=== PATIENT | female | born 1935 | race Caucasian/White ===

== ENCOUNTER 2016-09-07 11:03 | Inpatient (IN) | payer MEDICARE ==
[~2016-09-07] VITALS: Ht 160 cm; Wt 84.0 kg
--- NOTE | ~2016-09-07 | CR72 ---
[facility] A Service of [facility] & [facility] / [facility] RADIOLOGY TEXT RESULTS PATIENT: IVETH SNOWDEN LOCATION: [facility] 331- : 35 UNIT #: [id number] AGE: [address]: Tim Fontana MD SEX: F ORDER DR: [id number] [facility] [address] [place], [place] [address] [id number] MR#: [id number] Acc #: [id number] NAME: IVETH SNOWDEN. : 1935 SEX: F STUDY DATE/TIME: 09/07/2016 14:32 UNIT: [address] ROOM: [facility] STUDY DESCRIPTION: CR Chest Single View Portable Attending Physician: Tim Fontana M.D. Ordering Physician: Alfredo Baker M.D. Primary Care Physician: Soham Dietz M.D. MEDICAL IMAGING REPORT This report is preliminary unless electronic signature is present EXAM Portable chest HISTORY Former smoker. Complains of shortness of air, irregular heartbeat. COMPARISON 10/15/2015. FINDINGS AP portable view of the chest demonstrates coarse parenchymal markings suggesting underlying emphysema and fibrosis. There is cardiomegaly with prominence of the pulmonary vascular and interstitium. Findings could represent superimposed CHF. No dense consolidation or airspace disease. No effusions. Mild aortic atherosclerotic changes. No pneumothorax. Dictated by... Jose Maria Lee M.D. THIS IS AN ELECTRONICALLY VERIFIED REPORT Jose Maria Lee M.D. at 09/08/2016 1:32 PM CLAYTON/chandrakant TD: 09/08/2016 01:56 JOB #: [id number] MEDICAL IMAGING REPORT Page 1 of 1 COPY
--- NOTE | ~2016-09-07 | HP ---
Unit #: [id number] #: [id number] Patient: IVETH SNOWDEN [id number] [place], [place] [address] [id number] I MR#: [id number] NAME: IVETH SNOWDEN. ROOM: 38844 Age: 80 Sex: F Admission Date: 09/07/2016 : 1935 Attending Physician: Tim Fontana M.D. Primary Care Physician: Soham Dietz M.D. HISTORY AND PHYSICAL HISTORY OF PRESENT ILLNESS An 80-year-old white female with a history of diastolic CHF, right mastectomy for breast cancer, chronic afib, COPD, obstructive sleep apnea syndrome, coronary artery disease, pulmonary hypertension, hypertension, hyperlipidemia, old CVA, chronic anemia, chronic kidney disease stage 3, recently at [facility] 09/01/16 in the emergency room with shortness of air, told she had fluid on her lungs, was given IV Lasix with good diuresis there and then discharged home. Apparently her nurse at home had registered an O2 sat down in the 70s at that time. In any case, the patient presents now to our emergency room with the same symptoms of shortness of air, dyspnea on exertion, PND, orthopnea. She has had no chest pain, cough, fever, change in bowel or bladder habits and was having some palpitations but she is in chronic afib although her EKG here looks somewhat unusual, looks more like a first-degree AV block that is quite long versus an ectopic atrial rhythm and she is admitted for further evaluation. In the ER she was hypoxic with an O2 sat of 89% on 4 L. She had a hemoglobin of 11.2. Digoxin level was normal. BNP was slightly elevated at 330 but again she has chronic renal failure. Her potassium was 5.7, sodium 133, BUN 65, creatinine 1.9, GFR 24. Urinalysis appears to be infected. Urine culture was sent. She has been started on antibiotics and admitted. ALLERGIES Codeine and Lipitor. HOME MEDICATIONS Her meds prior to admission are in question. The old list has her on Eliquis, Coumadin, Lovenox and aspirin which obviously is not the case and this list came from [facility]'s emergency room. Otherwise she is on: Tylenol 650 q.8 h. p.r.n. Advair 250/50 one puff b.i.d. Albuterol mini-nebs q.6 h. p.r.n. Ventolin two puffs p.r.n. She tells me she is on warfarin and not Eliquis or Lovenox. She is on: Aspirin 81 mg daily. Tegretol 200 mg b.i.d. Lanoxin 0.125 mg daily. Flonase nasal spray daily. Lasix 80 mg b.i.d. Neurontin 100 mg t.i.d. Humulin 70/30 30 units subcu t.i.d. with meals. Humulin R on a sliding scale. Isosorbide mononitrate 120 mg daily. Coumadin, apparently it was on hold for a brief period of time yesterday. She was supposed to take 7.5 today and then go back to 10 daily which makes no sense but on her chart it says 5 mg daily. Will hold it and write parameters. Zestril she has two doses 20 mg and 40 mg daily. Glucophage 500 mg b.i.d. which I discontinued on her last admission because of renal insufficiency and CHF. Lopressor 50 mg b.i.d. Nitrostat p.r.n. Nystatin suspension which she is not. Protonix 40 mg daily which she should not be on. Potassium which is held Unit #: [id number] #: [id number] Patient: IVETH SNOWDEN A 10 mEq b.i.d. because of hyperkalemia. Prednisolone acetate one drop left eye daily. Requip 1 mg p.o. b.i.d. 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 SOCIAL HISTORY She is , a nonsmoker, nondrinker, no street drug use. FAMILY HISTORY Family history is noncontributory. PHYSICAL EXAMINATION GENERAL: She is awake, alert, oriented x3, in no acute distress, sitting bolt upright, with 4 L of oxygen on. Son is at the bedside. VITAL SIGNS: Afebrile, pulse 64, respirations 18, blood pressure 145/65, O2 sat again was 89% on 4 L. HEENT: Unremarkable except for nasal cannula in place and pale mucous membranes. NECK: Neck was supple, without JVD, bruits, adenopathy or thyromegaly. CHEST: Diffusely decreased breath sounds with end-expiratory wheezes but no rales. HEART: Heart is irregularly irregular, without an S3 gallop or murmur appreciated. ABDOMEN: Large soft, nondistended, nontender, with positive bowel sounds and no hepatosplenomegaly. EXTREMITIES: Showed 2+ pitting edema of the bilateral lower extremities without any clubbing or cyanosis. DIAGNOSTIC STUDIES LABORATORY VALUES: CBC normal except for a hemoglobin of 11.2, with normal indices but an elevated RDW. Cardiac enzymes normal. Digoxin level 1.3. CMP is normal except for a sodium of 133, a potassium of 5.7, random blood sugar of 173, a BUN of 65, a creatinine of 1.9, a GFR of 24.5. BNP was 330. Urinalysis shows 2+ leukocytes, positive for nitrites, 10 to 25 WBCs, 2+ bacteria. IMAGING: Chest x-ray unable to read the physician's handwriting. CARDIOVASCULAR: EKG as mentioned above. Seems to be regular but has not flipped what appears to be a P wave midway between the QRS complexes which is fairly regular and does not seem to change. Most consistent with an ectopic atrial rhythm with a first-degree AV block and there is some right ventricular hypertrophy and a nonspecific ST abnormality. I have no old EKGs here for comparison. IMPRESSION 1. Hypoxic respiratory failure. 2. Diastolic congestive heart failure. 3. Chronic obstructive pulmonary disease. 4. Obstructive sleep apnea syndrome. 5. Type 2 diabetes mellitus. Unit #: [id number] #: [id number] Patient: IVETH SNOWDEN 6. Chronic atrial fibrillation. 7. Puqlc-lc-ftylnnq kidney disease. 8. Hyperkalemia. 9. Urinary tract infection. 10. Hyperlipidemia. 11. Old cerebrovascular accident. 12. History of gastrointestinal bleed. 13. History of right breast cancer, status post mastectomy. PLAN Kayexalate, IV Lasix, consult nephrology, consult cardiology, give Kayexalate, check ABGs, give IV Lasix, supplemental oxygen, Solu-Medrol, IV antibiotics, mini-nebs, Accu-Cheks, further evaluation pending results of the above. Dictated by Irene Hartmann/enrique TD: 09/07/2016 19:19 JOB #: [id number] HISTORY AND PHYSICAL Page 1 of 1 X Tim Fontana MD HISTORY AND PHYSICAL
--- NOTE | ~2016-09-07 | CO ---
Unit #: [id number] #: [id number] Patient: IVETH SNOWDEN [id number] [facility]. [place], [place] [address] [id number] I MR#: [id number] NAME: IVETH SNOWDEN ROOM: 331 Age: 80 Sex: F Admission Date: 09/07/2016 : 1935 Attending Physician: Tim Fontana M.D. Primary Care Physician: Soham Dietz M.D. Requesting Physician: Tim Fontana M.D. CONSULTATION REPORT REASON FOR CONSULTATION Patient known to my partner, followed by Dr. Arie Short for CKD stage 3. REASON FOR ADMISSION Shortness of breath, congestive heart failure. HISTORY OF PRESENTING ILLNESS This patient is a very pleasant 80-year-old white female with a history of metabolic syndrome with type 2 diabetes, hypertension, dyslipidemia, and known history of atherosclerotic coronary artery disease, status post stent placement in her coronaries. Patient has diastolic dysfunction and chronic atrial fibrillation. She was admitted with the complaint of increased shortness of breath. Patient had several pounds of fluid weight gain, +2 pitting edema, and positive JVD. She received some diuretics and feels a little bit better. Denied any fever, chills, cough, or sputum production, and denied any orthopnea. She does report that she does spend more time in a recliner. Patient had some hypoxemia on room air with 89% on four liters of oxygen, and she was admitted for management. Patient has a baseline creatinine of 1.6. Her creatinine was increased to 1.9 and BUN to 65. Her potassium was also elevated to 5.7. We were asked to see the patient for evaluation and management of acute on chronic renal failure and volume overload. PAST MEDICAL HISTORY As per History of Presenting Illness. She has a history of metabolic syndrome, type 2 diabetes, obesity, hypertension, hyperlipidemia, coronary artery disease, chronic atrial fibrillation, status post cholecystectomy and mastectomy for breast cancer, pulmonary hypertension, and obstructive sleep apnea. ALLERGIES Codeine and Lipitor. HOME MEDICATIONS 1. Eliquis. 2. Coumadin. 3. Aspirin. 4. Advair Diskus 250/50 b.i.d. 5. Ventolin. 6. Lasix 80 mg b.i.d. 7. Flonase nasal spray. 8. Neurontin 100 t.i.d. 9. Insulin 70/30 at 30 units t.i.d. Unit #: [id number] #: [id number] Patient: IVETH SNOWDEN 10. Lopressor 50 b.i.d. 11. Nitroglycerin sublingual p.r.n. PHYSICAL EXAMINATION GENERAL: Patient is in no acute distress sitting in the chair. VITAL SIGNS: Temperature is 97.6, pulse 91, and blood pressure 159/69. HEENT: Mild pallor. No oral exudate. NECK: Supple. Positive JVD. No bruit, no thyromegaly, and no cervical lymphadenopathy. CHEST: A few crackles on the bases and expiratory wheezes. CARDIOVASCULAR: Irregular rate and rhythm. No rub. ABDOMEN: Bulky, soft, nontender. Positive bowel sounds. EXTREMITIES: He has +1 pitting edema. DIAGNOSTIC STUDIES LABORATORY: Sodium is 136, potassium 5.3, chloride 98, bicarb 29, BUN 65, creatinine 1.6, calcium 8.3, phosphorus 3.8, and magnesium 2. ASSESSMENT AND PLAN Mild acute on chronic kidney injury secondary to decompensated heart failure. Patient has a known history of diastolic congestive heart failure. Will optimize volume status and continue diuretics IV. Will check urinalysis, urine electrolytes, and urinary eosinophils, and rule out other secondary causes. He seems to have decompensated heart failure as the main etiology for acute on chronic kidney injury. Patient was also counseled to cut down on salt intake. Will follow along with you. Thank you very much for asking me to see this patient. Dictated by... Irene Staley/joseline TD: 09/08/2016 15:27 JOB #: [id number] CONSULTATION REPORT Page 1 of 1 X Griselda Earl MD X CONSULTATION REPORT
--- NOTE | ~2016-09-07 | CO ---
Unit #: [id number] #: [id number] Patient: IVETH SNOWDEN [address] [facility] [address] [facility]. [place], [place] [address] [id number] I MR#: [id number] NAME: IVETH SNOWDEN. ROOM: 331 Age: 80 Sex: F Admission Date: 09/07/2016 : 1935 Attending Physician: Tim Fontana M.D. Primary Care Physician: Soham Dietz M.D. Consultation Date: 09/13/2016 CONSULTATION REPORT PRIMARY CARE PHYSICIAN Soham Dietz M.D. REASON FOR CONSULT Weakness in both hands, dropping things, poor hand professor sculpture. PATIENT IDENTIFICATION This is an 80-year-old, left-handed, female, evaluated in room 331 at [facility]. SOURCE OF INFORMATION Obtained from the patient as well as medical record and discussion with nursing staff. HISTORY OF PRESENT ILLNESS This is an 80-year-old, left-handed, female with a past medical history of multiple medical conditions including diastolic CHF, right mastectomy for breast cancer, chronic atrial fibrillation, obstructive sleep apnea syndrome, COPD, on home oxygen, pulmonary hypertension, CAD, chronic kidney disease, stage 3, prior CVA, chronic anemia, who presents to [facility] with complaints of shortness of air, dyspnea on exertion, PND, and orthopnea. She was admitted for acute hypoxic respiratory failure on chronic respiratory failure, and acute on chronic diastolic heart failure, as well as acute kidney injury on chronic kidney disease. She has shown some decline throughout her hospital stay. She is being evaluated for rehab versus correction placement. Neurology was asked to see as the patient is dropping things. When I talked to the patient, she is very extremely hard of hearing, so it was difficult to elicit a full review of systems. She does admit that she is dropping things. She states that she feels as though she cannot hold things for very long without dropping them. She cannot tell me how long this has been going on, though when I talked to nursing staff, they do state this has been observed throughout her stay. The patient states she just "does not feel well. On interview and evaluation, she seems to have dyspnea with any type of exertion including talking. She can name and identify and follow commands, but she is slow to get her words out. It appears more so due to her breathing difficulties. She was apparently somnolent this morning, very difficult to arouse. Her blood gases were checked and her pCO2 is 59, pO2 is 77.2, pH 7.394. Her oxygen was adjusted from 4 L to 3 L given the elevated CO2. The patient has been more awake this afternoon. She is fully awake and able to make her needs known, but again is appearing to be somewhat short of breath and dyspnea with any exertion including speaking. On exam, she does have some asterixis and bilaterally very mild tremor. Bilaterally, no weakness, however, is seen. No focal Unit #: [id number] #: [id number] Patient: IVETH SNOWDEN examination. No ataxia is seen. I did watch the patient stand up and help her ambulate to the bedside toilet. She had used the restroom and she was able to stand without assistance and she does not exhibit any truncal ataxia. No prior brain imaging available. Recently, she did have a CT of the head in 2014 done for headache and fall and it did not show any acute abnormalities. It did show chronic lacunar infarcts and atrophy change, more pronounced in the bilateral frontal lobes, but stable, as well as periventricular and deep white matter tract hypodensities, most consistent with sequelae of chronic microvascular ischemic change, stable, with bilateral lacunar infarcts in the basal ganglia, also noted was extensive cavernous carotid arterial calcification and mucosal thickening in the ethmoid air cells in maxillary sinuses. No indication of acute sinusitis and also ocular implant along the left lateral aspect of the right eyeball, stable appearance, no fracture. The patient is unable to communicate any exacerbating or alleviating factors or any other associated symptoms. She is extremely hard of hearing, so it is very difficult to get a full review of systems. She denies headache or fever. She denies any numbness or tingling or any focal neurologic deficits. PAST MEDICAL HISTORY 1. CAD with cardiac catheterization in 2005 that showed left main normal; LAD, patent stent; left circumflex, 40% stenosis at the origin of first marginal branch, RCA 80% to 90% at the origin of the posterior LV branch, status post drug-eluting stent. She had an echo in 2015 as well that showed mild concentric LVH, EF of 65%, right atrium, moderate to severely enlarged, RV moderately dilated, severe pulmonary hypertension RVSP of 85 mmHg, moderate TR. 2. Permanent atrial fibrillation. 3. Chronic kidney disease, stage 3. 4. Hypertension. 5. Hyperlipidemia. 6. Pulmonary hypertension. 7. Diabetes. 8. COPD, on home oxygen. 9. Obstructive sleep apnea, no longer on a CPAP. 10. Chronic diastolic heart failure. 11. Former tobacco use. 12. Breast cancer. 13. Right mastectomy. FAMILY HISTORY Noncontributory given her stated age of 80. SOCIAL HISTORY The patient apparently prior to this lived at home alone, but has a son who lives in [place], who comes on Sundays and one other day through the week, sometimes more often if he is able. She also apparently has some help from her neighbors who help with different things such as taking her to appointments and cooking meals for her. She has a history of tobacco use, but is a reformed smoker. No known illicit drug use or alcohol abuse. ALLERGIES Codeine, atorvastatin. HOME MEDICATIONS Have been reviewed. Her med rec is not correct however, and did require a lot of adjustments by the admitting physician. Her current hospital Unit #: [id number] #: [id number] Patient: IVETH SNOWDEN medications include hydralazine, furosemide, Zyloprim, acetazolamide, Novolin 70/30, warfarin, Imdur ER, NovoLog, Lopressor. She is on Tegretol-XR 200 mg p.o. b.i.d., aspirin, nitroglycerin, Tylenol, albuterol sulfate, Dulera, prednisolone eye drops, Flonase nasal spray, Lanoxin, potassium chloride, sodium ferric gluconate IV. Her Requip, Neurontin, Zaroxolyn, and hydralazine have been discontinued. REVIEW OF SYSTEMS 14-point review of systems was attempted, but very difficult as the patient is extremely hard of hearing. Pertinent positives are as discussed above. PHYSICAL EXAMINATION VITAL SIGNS: Temperature 97.7, she has been afebrile, pulse 67, respirations 16, blood pressure 110/89, oxygen saturation 98%. She is on 3 L. height 5 feet 3 inches, weight 190 pounds. NEUROLOGIC: The patient is awake. She is resting in bed comfortably, in no acute distress, but does exhibit some dyspnea with any type of exertion. She is oriented to person. She is oriented to place. She is oriented to time, but it is difficult to assess given that she is very hard of hearing, but she is able to tell me the time of the day and the date. She is very hard of hearing. She follows commands. She can name and identify. She does not appear to be aphasic or apraxic or dysarthric. Cranial nerve exam; she demonstrates full panchal of vision. Her eyes are conjugate without ptosis or nystagmus. Extraocular movements are intact. Sensation of face and scalp is intact. Strength of the muscles of the facial expression is intact. Hearing is intact to voice, but she is extremely hard of hearing. I have to speak very loudly and repeat myself multiple times. Tongue is midline. Unable to visualize uvula and palate. Head turning and shoulder shrug are unremarkable. Neck is supple. Motor exam, she is not weak on exam. She has good professor sculpture strength. She has good strength proximally and distally in the upper and lower extremities. She can ambulate without assistance. She has a walker at the bedside and does require the use of that when walking throughout the room, but she is able to stand herself up out of the bed and bear weight without assistance. Sensory exam; exam is intact to soft touch and pinprick sensation at this time. Sensation is intact both proximally and distally in her extremities. Romberg deferred. Reflexes, unable to elicit. Toes are equivocal. Coordination, no ataxia seen. DIAGNOSTIC STUDIES IMAGING STUDIES: Please see above. LABORATORY RESULTS: Please see above for arterial blood gas. Today's BMP shows a sodium of 142, potassium 3.5, chloride 96, CO2 of 36, glucose 35, BUN 80, creatinine 1.4, estimated GFR 35.4, calcium 8.9, magnesium 2.4, PT is 27.1, INR 2.5. She is on warfarin. White blood cell count is 6.4, hemoglobin 11, hematocrit 35.7, and platelet count is 130. Urinalysis from 09/12/2016 is unremarkable. Micro and culture not indicated. Urinalysis from 09/11/2016 is also unremarkable. EKG from 09/10/2016 shows sinus rhythm with first degree AV block per Cardiology report. Troponin 0.05 on 09/10/2016. Free T4 0.85, free T3 2.3, TSH 0.26 on 09/09/2016. BNP is 685 on 09/09/2016. Urine culture from 09/07/2016 shows E coli greater than 100,000 colony count. Other labs done on studies are as per chart and have been reviewed. Unit #: [id number] #: [id number] Patient: IVETH SNOWDEN IMPRESSION 1. Asterixis. 2. Likely metabolic encephalopathy. 3. Acute on chronic kidney disease. 4. Recent urinary tract infection with repeat urinalysis unremarkable. 5. Acute on chronic respiratory failure. 6. Congestive heart failure, acute on chronic. 7. Permanent atrial fibrillation. PLAN The patient does not appear to be weak, but she definitely has asterixis likely secondary to her underlying acute on chronic conditions in a patient who is quite chronically ill; however, given her evaluation, we will check a head CT. We will check an ammonia level. We will repeat her BNP. She appears to have some difficulty even with conversation given her shortness of air. So, we will repeat a BNP. We will check a B12 level and also check Tegretol level, which could be if elevated have similar adverse reactions though it looks like it is the home medication for her and she has been tolerating. It is not on her med rec, but again her med rec is very inaccurate when she came in and she did tell me admitting that she takes Tegretol and reports that she does take it. So, regardless, we will check a Tegretol level, ammonia level, BNP level, and B12 level and order CT of the head with no contrast. Further recommendations to be made pending workup and further clinical course. We will discuss with Dr. Rocha as well for any further recommendations regarding the assessment and plan. We thank you very much for allowing us to assist in the care of this patient. Dictated by... Heaven Rogers A.P.R.N. for Irene Orosco/sveta TD: 09/14/2016 00:41 JOB #: [id number] CONSULTATION REPORT Page 1 of 1 X Heaven Rogers APRN X CONSULTATION REPORT
--- NOTE | ~2016-09-07 | CT57 ---
[facility] A Service of [facility] & [facility] RADIOLOGY TEXT RESULTS PATIENT: IVETH SNOWDEN LOCATION: [facility] 331- : 35 UNIT #: [id number] AGE: [address]: Tim Fontana MD SEX: F ORDER DR: [id number] [facility] [address]. [place], [place] [address] [id number] I MR#: [id number] Acc #: [id number] NAME: IVETH SNOWDEN. : 1935 SEX: F STUDY DATE/TIME: 09/08/2016 10:31 UNIT: [address] ROOM: [facility] STUDY DESCRIPTION: CT Chest Wo Cont Attending Physician: Tim Fontana M.D. Ordering Physician: Deisi Vázquez M.D. Primary Care Physician: Soham Dietz M.D. MEDICAL IMAGING REPORT This report is preliminary unless electronic signature is present EXAM CT chest without contrast, 09/08/2016. HISTORY 80-year-old female with increased shortness of breath since 09/07/2016. Respiratory failure and irregular heart rate. Breast cancer diagnosed 1 year ago. Right mastectomy. Previous cholecystectomy. COPD. Congestive heart failure. Stage III chronic kidney disease. Diabetes. Cardiac disease. COMPARISON CT chest without contrast 07/26/2015. CT abdomen and pelvis without contrast, 10/15/2015. AP portable chest 09/07/2016. PROCEDURE 5-mm axial images through the chest without contrast. Sagittal and coronal reformatted images were obtained. This CT exam was performed with one or more of the following radiation dose reduction techniques: automatic exposure control, adjustment of mA and/or kV according to patient size, and iterative reconstruction. FINDINGS Small right pleural effusion layers to a depth of 2.7 cm and appears to be a stable, chronic finding compared to 07/26/2015. Posterior right basilar airspace disease likewise has a similar appearance to 07/26/2015, favored to represent chronic atelectasis, although pneumonia is not excluded. Moderate emphysematous changes are present. Fine interstitial thickening is present within both lungs which may represent a component of mild interstitial edema. There is chronic band-like scarring within the region of the right middle lobe. There is stable moderate cardiac enlargement. No pericardial effusion is seen. Mildly prominent mediastinal lymph nodes appear stable since 07/26/2015, including an index right upper paratracheal node measuring 2.0 x 1 cm and a prevascular node measuring STS. [facility] A Service of [facility] & [facility] RADIOLOGY TEXT RESULTS PATIENT: IVETH SNOWDEN LOCATION: [facility] 331-01 : 35 UNIT #: [id number] AGE: [address]: Tim Fontana MD SEX: F ORDER DR: 2.3 x 1.2 cm. No supraclavicular or axillary adenopathy is seen. Surgical changes of right mastectomy noted. There is nodular surface contour to the liver which may represent changes of cirrhosis, similar to prior exam. No focal liver lesions seen on today's noncontrast appearance. Trace amount of perihepatic ascites is increased from the CT abdomen of 10/15/2015. Cholecystectomy. Mild splenomegaly, 15 cm, incompletely imaged. Stable left adrenal hyperplasia. Incompletely imaged left renal cyst measures 3.6 cm. Progressive compression deformity of T11 with approximately 58% loss of vertebral body height and minimal bony retropulsion. No new osseous abnormalities are identified. Previously described 5-mm right upper lobe pulmonary nodule on today's study measures about 4 mm, which may be due to slight differences in slice selection. An additional 4-mm nodular density is seen adjacent to it within the right upper lobe, not definitely seen on prior exam. IMPRESSION 1. Chronic small right pleural effusion with posterior right basilar airspace disease thought to represent chronic atelectasis. 2. Fine interstitial thickening throughout both lungs may represent a component of interstitial edema superimposed upon emphysema. 3. 4-mm right upper lobe pulmonary nodule is thought to be unchanged from 07/26/2015. There is an additional 4-mm nodule adjacent to it that appears new. Short-term CT chest followup in 4-6 months would be recommended. 4. Stable mediastinal adenopathy. 5. Progressive compression deformity of the T11 vertebral body, now with 58% loss of vertebral body height and mild bony retropulsion. No subluxation. No new osseous lesions are identified. 6. There is stable left adrenal hyperplasia. 7. 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 Dictated by... Alison Reed M.D. THIS IS AN ELECTRONICALLY VERIFIED REPORT Alison Reed M.D. at 09/09/2016 11:57 AM Scott TD: 09/08/2016 16:07 JOB #: [id number] MEDICAL IMAGING REPORT Page 1 of 1 COPY
--- NOTE | ~2016-09-07 | DS ---
Unit #: [id number] #: [id number] Patient: IVETH SNOWDEN [id number] [address] [place], [place] [address] [id number] I MR#: [id number] NAME: IVETH SNOWDEN. ROOM: 331 Age: 80 Sex: F Admission Date: 09/07/2016 : 1935 Discharge Date: 09/16/2016 Attending Physician: Tim Fontana M.D. Primary Care Physician: Soham Dietz M.D. DISCHARGE SUMMARY TENTATIVE DATE OF TRANSFER 09/16/16 PRINCIPAL DISCHARGE DIAGNOSES 1. Acute on chronic hypoxic respiratory failure. 2. Exacerbation of chronic obstructive pulmonary disease. 3. Congestive heart failure, both diastolic and systolic. 4. Chronic atrial fibrillation. 5. Acute on chronic kidney disease. 6. Coronary artery disease. 7. Anemia. 8. Thrombocytopenia. 9. Old cerebrovascular accident. 10. Acute encephalopathy, toxic metabolic. 11. Type 2 diabetes mellitus. 12. Hyperkalemia. 13. Escherichia coli urinary tract infection. 14. Hyperlipidemia. 15. History of gastrointestinal bleed. 16. History of right breast cancer, status post mastectomy. 17. Two right upper lobe pulmonary nodules. 18. Descending thoracic aortic aneurysm, 3.4 cm. PROCEDURES None. CONSULTANTS 1. Dr. Earl from nephrology. 2. Dr. Rocha from neurology. 3. Dr. Vázquez from cardiology. REASON FOR HOSPITALIZATION The patient is an 80-year-old, white female with a history of diastolic CHF, right mastectomy for breast cancer, chronic AFib, COPD, obstructive sleep apnea syndrome, coronary artery disease, pulmonary hypertension, hyperlipidemia, old CVA, chronic anemia, chronic kidney disease stage 3, and recently at [facility] with CHF treated with IV Lasix and discharged only to present back to our emergency room with O2 sats at home down to the 70s on 4 liters. In the ER, she had an O2 sat of 89% on 4 liters. Hemoglobin was 11.2. Digoxin level was normal. BNP was 330. Potassium 5.7, sodium 133, BUN 65, creatinine 1.9, and GFR 24. Urinalysis was abnormal and sent. She was started on antibiotics for suspected urinary tract infection as well. Unit #: [id number] #: [id number] Patient: IVETH SNOWDEN HOSPITAL COURSE The patient was admitted. She was given Kayexalate and IV Lasix. Nephrology and cardiology were consulted. ABGs were checked. She was placed on IV antibiotics for possible COPD exacerbation and urinary tract infection, mini-nebs, Accu-Cheks, and Solu-Medrol. Pro-time was checked. There was some question of what she was on at home. Her med list from [facility] had her on Lovenox, Coumadin, and Eliquis; which obviously was not the case. In any case, her pro-time came back at 2.8, well within the therapeutic range. Cardiac enzymes remained within normal limits. TSH was slightly low at 0.26. Free T3 was slightly low at 2.3. Free T4 was normal at 0.85. Urine for eosinophils was negative. CT scan of the chest without contrast showed a chronic small right pleural effusion; interstitial edema; unchanged 4 mm right upper lobe pulmonary nodule versus 07/26/15; additional 4 mm nodule, which appeared new and short-term CT scan of the chest for followup in 4-6 months is recommended; stable mediastinal adenopathy; compression deformity of T11; 58% vertebral body height loss, progressive; stable left adrenal hyperplasia; and stable 3.4 cm fusiform aneurysm, descending thoracic aorta. Patient slowly, but surely was diuresed. Her potassium was corrected. Adjustments were made in her medicine. She then began to have mental status changes with decreased level of consciousness. On the , CT scan of the head showed no change even though there was motion artifact. ABGs were checked. Her CO2 was 59, but her pH was normal. Suspected to be chronic. Tegretol level was checked and was 7.7. Ammonia level 31. B12 was 295. Neurology was consulted and felt the patient had toxic metabolic encephalopathy, which has somewhat cleared now. Her Neurontin and Requip that she was on at home were discontinued and that seemed to help. She is much more awake and alert even though she is still somewhat confused. She currently has a bed at [facility]. I do not have her a.m. labs to know whether she can go this morning or not. Yesterday's labs were in good order and these will be checked prior to discharge. Yesterday's pro-time was 2.8. Yesterday's BMP was normal, except for a BUN of 79, a creatinine of 1.7, and a GFR of 28. Yesterday's CBC was normal, except for a hemoglobin of 10.6 and a platelet count of 121,000. Please note her last couple of urinalyses after treatment with IV antibiotics were within normal range. Her initial urine culture grew E. coli greater than (1) sensitive to Bactrim and resistant to ampicillin and sensitive to nitrofurantoin and resistant intermediately to ceftriaxone. Pharmacy did not test for Levaquin or Cefepime, but stated that it was sensitive to Cefepime, which she was treated with. In any case, she appears to be stable for discharge pending her labs from this morning. MEDICATIONS Her current meds: 1. O2 at 3 liters nasal cannula continuously. 2. Nitrostat 0.4 mg sublingual p.r.n. for chest pain. 3. Imdur ER 120 mg p.o. daily. 4. Aspirin 81 mg p.o. daily. 5. Zyloprim 200 mg p.o. daily. 6. NovoLog low dose sliding scale a.c. and h.s. 7. Novolin 70/30 thirty units subcu. t.i.d. with meals. 8. Hydralazine 50 mg p.o. t.i.d. 9. Furosemide 40 mg p.o. b.i.d. 10. MiraLAX 17 g p.o. daily. 11. Lopressor 50 mg p.o. b.i.d. 12. Lanoxin 0.125 mg p.o. daily. 13. Acetazolamide 250 mg p.o. b.i.d. 14. Dulera 200-5 two puffs b.i.d. Unit #: [id number] #: [id number] Patient: IVETH SNOWDEN 15. Tegretol XR 200 mg p.o. b.i.d. 16. Warfarin 7.5 mg daily. Hold for INR greater than 3. 17. Pred Forte 1 drop left eye daily. 18. Flonase nasal spray 1 spray in both nostrils daily. 19. Tylenol 650 q.8 p.r.n. for pain. 20. Albuterol sulfate mini-nebs 4 times daily. Please note the patient did have a 2D echo while she was here, which showed her left ventricular systolic function with an EF of 40% to 45%. Obviously, she is not on an DALJIT inhibitor because of hyperkalemia and currently at stage 4 chronic kidney disease. She also had some elevated right ventricular end-diastolic pressures. She had tons-hb-cshkxckz pulmonary regular. Aortic valve was somewhat thickened, but normal. Mitral valve was normal. Tricuspid valve showed severe regurgitation secondary to RVSP of 72. Please note the patient is on healthy heart, constant carb diet. Dictated by... Tim Fontana M.D. BORIS/lanre TD: 09/16/2016 12:53 JOB #: [id number] DISCHARGE SUMMARY Page 1 of 1 X Tim Fontana MD X DISCHARGE SUMMARY
--- NOTE | ~2016-09-07 | CT71 ---
[facility] A Service of [facility] & [facility] RADIOLOGY TEXT RESULTS PATIENT: IVETH SNOWDEN LOCATION: [facility] 331- : 35 UNIT #: [id number] AGE: [address]: Tim Fontana MD SEX: F ORDER DR: [id number] [facility] [address] [facility]. [place], [place] [address] [id number] I MR#: [id number] #: [id number] NAME: IVETH SNOWDEN. : 1935 SEX: F STUDY DATE/TIME: 09/13/2016 16:52 UNIT: [address] ROOM: [facility] STUDY DESCRIPTION: CT Head Wo Contrast Attending Physician: Tim Fontana M.D. Ordering Physician: Heaven Rogers A.P.R.N. Primary Care Physician: Soham Dietz M.D. MEDICAL IMAGING REPORT This report is preliminary unless electronic signature is present EXAM Noncontrast CT head. DATE 09/13/2016 HISTORY 80-year-old female with head discomfort today. Previous history of stroke. Cardiac arrhythmia on 09/07/2016. Confusion today. Additional history of hypertension, congestive heart failure, diabetes, thyroid disease. COMPARISON Noncontrast CT head, 09/04/2014. TECHNIQUE This CT exam was performed with one or more of the following radiation dose reduction techniques: automatic exposure control, adjustment of mA and/or kV according to patient size, and iterative reconstruction. FINDINGS Study is degraded by motion necessitating repeat attempted imaging. Repeat imaging also is motion degraded. Hypodensities within the deep white matter of the brain predominately in a periventricular distribution, and within the centrum semiovale, and lacunar infarct in the midbrain to the right of midline, without significant change. No evidence of acute or evolving infarct. Generalized parenchymal atrophy greatest in the bifrontal regions. No intracranial hemorrhage, mass lesion, mass effect, or midline shift or evidence of acute or evolving infarct. No displaced calvarial fracture is identified. There is moderate patchy bilateral ethmoid sinus mucosal thickening. There are surgical changes of the left lobe. Mastoid air [facility] A Service of [facility] & [facility] RADIOLOGY TEXT RESULTS PATIENT: IVETH SNOWDEN LOCATION: [facility] 331-01 : 35 UNIT #: [id number] AGE: [address]: Tim Fontana MD SEX: F ORDER DR: cells appear clear. Moderate intracranial coronary artery calcifications are present. IMPRESSION 1. The study is motion degraded despite repeated attempts at imaging. 2. Chronic microvascular disease changes and parenchymal atrophy, similar in appearance to the 09/04/2014 examination. No acute intracranial findings. 3. Surgical changes of the left globe. 4. Moderate bilateral ethmoid sinus disease. Dictated by... Alison Reed M.D. THIS IS AN ELECTRONICALLY VERIFIED REPORT Alison Reed M.D. at 09/14/2016 9:59 PM MARISA/german TD: 09/14/2016 09:30 JOB #: [id number] MEDICAL IMAGING REPORT Page 1 of 1 COPY
--- NOTE | ~2016-09-07 | EKG ---
PATIENT: IVETH SONWDEN UNIT #: [id number] Ventricular Rate: 92 BPM Atrial Rate: 147 BPM QRS Duration: 96 ms Q-T Interval: 348 ms QTC Calculation(Bezet): 430 ms Calculated R [place]: 105 degrees Calculated T [place]: -64 degrees Diagnosis Line: Atrial fibrillation Diagnosis Line: Rightward axis Diagnosis Line: ST and T wave abnormality, consider inferior Diagnosis Line: ischemia or digitalis effect Diagnosis Line: Abnormal ECG Diagnosis Line: When compared with ECG of 07-SEP-2016 11:17, Diagnosis Line: Atrial fibrillation has replaced Ectopic atrial Diagnosis Line: rhythm Diagnosis Line: T wave inversion more evident in Inferior leads Diagnosis Line: Confirmed by TYREL HANNA MD ([id number]) on Diagnosis Line: 09/10/2016 7:14:20 AM INTERPRETING MD: YAMILA
--- NOTE | ~2016-09-07 | EKG ---
PATIENT: IVETH SNOWDEN UNIT #: [id number] Ventricular Rate: 71 BPM Atrial Rate: 71 BPM P-R Interval: 432 ms QRS Duration: 96 ms Q-T Interval: 376 ms QTC Calculation(Bezet): 408 ms Calculated R [place]: 103 degrees Calculated T [place]: -26 degrees Diagnosis Line: Sinus rhythm with 1st degree A-V block Diagnosis Line: Rightward axis Diagnosis Line: Septal infarct , age undetermined Diagnosis Line: ST and T wave abnormality, consider inferior Diagnosis Line: ischemia Diagnosis Line: Abnormal ECG Diagnosis Line: When compared with ECG of 09-SEP-2016 09:26, Diagnosis Line: Sinus rhythm has replaced Atrial fibrillation Diagnosis Line: Septal infarct is now Present Diagnosis Line: Confirmed by HUMZA UPTON MD ([id number]) on Diagnosis Line: 09/10/2016 3:53:55 PM INTERPRETING MD: BHARAT
--- NOTE | ~2016-09-07 | EKG ---
PATIENT: IVETH SNOWDEN UNIT #: [id number] Ventricular Rate: 69 BPM Atrial Rate: 69 BPM P-R Interval: 416 ms QRS Duration: 88 ms Q-T Interval: 364 ms QTC Calculation(Bezet): 390 ms P [place]: -60 degrees Calculated R [place]: 117 degrees Calculated T [place]: 11 degrees Diagnosis Line: Unusual P axis, possible ectopic atrial rhythm Diagnosis Line: Right axis deviation Diagnosis Line: Possible Right ventricular hypertrophy Diagnosis Line: Nonspecific ST abnormality Diagnosis Line: Abnormal ECG Diagnosis Line: When compared with ECG of 15-OCT-2015 16:55, Diagnosis Line: Ectopic atrial rhythm has replaced Atrial Diagnosis Line: fibrillation Diagnosis Line: Confirmed by TYREL HANNA MD ([id number]) on Diagnosis Line: 09/07/2016 8:30:11 PM INTERPRETING MD: YAMILA
--- NOTE | ~2016-09-07 | CO ---
Unit #: [id number] #: [id number] Patient: IVETH SNOWDEN [id number] [facility] [place] [facility]. [place], [place] [address] [id number] MR#: [id number] NAME: IVETH SNOWDEN ROOM: 331 Age: 80 Sex: F Admission Date: 09/07/2016 : 1935 Attending Physician: Tim Fontana M.D. Primary Care Physician: Soham Dietz M.D. Consultation Date: 09/08/2016 CONSULTATION REPORT DICTATED FOR Deisi Vázquez M.D. REASON FOR CONSULT Shortness of breath with exertion. HISTORY OF PRESENT ILLNESS The patient is an 80-year-old white female, who follows with Dr. Laguna for history of coronary artery disease status post stenting, severe pulmonary hypertension with an RVSP of 85 mmHg, diastolic heart failure, permanent atrial fibrillation, hypertension, hyperlipidemia, diabetes, COPD on home O2, obstructive sleep apnea on nighttime oxygen, chronic kidney disease stage 3, and former tobacco abuse. The patient presented to the [facility] ER on 09/07/2016 at 11:00 a.m. with complaints of shortness of breath and palpitations. The patient states that for the last month she has been getting increasingly short of breath with exertion, where she is having difficulty dressing herself as well as taking a shower, much less walking across the room without getting severely dyspneic. On some of these occasions, her home health visiting nurse from [facility] has been there and checked her oxygen level which at that time was reported to be 95%. Yesterday, the patient called her seismic plotter due to her shortness of breath and he recommended that she come to [facility], however, the patient states that on the way she was very nervous, anxious, and felt more short of breath; therefore, she instructed her neighbor to bring her to [facility] because it was the closest hospital to her. The patient states that she was just at [facility] a few days prior according to the H and P, it was on 09/01/2016, where she went in there for the shortness of breath, same symptoms, and they apparently sent her home that day as they told her chest x-ray and labs were normal. It is documented in the H and P, that she was given some IV diuretics, however, the patient states they did not give her anything they just sent her home without any treatment. The patient states that when she got home, she increased the use of some of her inhalers and thought maybe that would help, however, she had no relief. The patient also states she has had some chest pain that she describes as a heaviness for the last 1 to 2 days. She says she has taken Tums that has not helped with her symptoms. She has also had some nausea, vomiting, diarrhea, and lightheadedness, but denies any syncope. The patient had a cardiac cath in 09/2015 that showed a left main normal LAD with a patent stent. Left circumflex 40% at the origin of the first marginal, RCA with 80% to 90% at the origin of the first posterior LV branch where she had a stent placed at that time a drug-eluting stent. Unit #: [id number] #: [id number] Patient: IVETH SNOWDEN Casandra Echo in 09/2015 showed mild concentric LVH, EF of 65%, right atrium moderately to severely enlarged, right ventricle moderately dilated, severe pulmonary hypertension with an RVSP of 85 mmHg and moderate TR. Cardiology was asked to see the patient to workup for possible exacerbation of heart failure with the shortness of breath. PAST MEDICAL HISTORY 1. Cardiac cath on 09/2015 left main normal, LAD patent stent, left circumflex 40% stenosis at the origin of the first marginal branch, RCA 80% to 90% at the origin of the posterior LV branch, status post drug-eluting stent. 2. Echo in 09/2015 mild concentric LVH, EF of 65%, right atrium moderately severely enlarged, RV moderately dilated, severe pulmonary hypertension, RVSP of 85 mmHg, moderate TR. 3. Permanent atrial fibrillation. 4. Hypertension. 5. Hyperlipidemia. 6. Diabetes. 7. COPD, on home O2. 8. Obstructive sleep apnea, no longer uses a CPAP, only oxygen at night. 9. Chronic kidney disease, stage 3. 10. Chronic diastolic heart failure. 11. Former tobacco abuse. 12. Breast cancer. PAST SURGICAL HISTORY Includes right mastectomy secondary to breast cancer. SOCIAL HISTORY The patient lives at home alone. She does states that she has a son who lives in [place], who comes on Sundays and then one other day throughout the week or more often if he can. She also has several neighbors that pitch in to help her with different things such as taking her to appointments and cooking meals for her. The patient does state that she has noted that it has been increasingly more difficult for her at home to take care of herself and has contemplated possible intermediate placement. She has a history of smoking, but states that she quit. ALLERGIES Include atorvastatin. HOME MEDICATIONS Includes Tylenol 650 p.o. q.8 hours as needed for pain, Advair 250/50 one puff b.i.d., albuterol every 6 hours as needed for shortness of breath or wheezing, Ventolin 2 puffs every 6 hours as needed for shortness of breath. Coumadin 5 mg p.o. daily, as the med rec states Kristy, but the patient states she has not been taking that for about the last year due to cost, however, she has been approved for a program that is going to allow her to get it for free, therefore, she will be going back to [facility], but has been on Coumadin. Aspirin 81 mg p.o. daily, Equetro 200 mg p.o. b.i.d., Lanoxin 0.125 mg p.o. daily, Flonase daily, Lasix 80 mg p.o. b.i.d., Neurontin 100 mg p.o. t.i.d., Humulin 70/30 of 30 units subcu t.i.d., Humulin R as needed for high blood sugar, isosorbide mononitrate 120 mg p.o. daily, Zestril 20 mg p.o. daily dose and 40 mg p.o. daily dose listed, Glucophage 50 mg p.o. b.i.d., Lopressor 50 mg p.o. b.i.d., nitroglycerin 0.4 mg sublingual every 5 minutes as needed for chest pain, nystatin p.o. q.i.d., Protonix 40 mg p.o. every morning, potassium 10 mEq Unit #: [id number] #: [id number] Patient: IVETH SNOWDEN p.o. b.i.d., prednisone daily, Requip 1 mg p.o. b.i.d. REVIEW OF SYSTEMS A 10-point review of systems negative except for what is listed above in HPI. PHYSICAL EXAMINATION GENERAL: This is an 80-year-old white female, who is alert and oriented x3, in no apparent distress. VITAL SIGNS: Blood pressure 169/80, respirations 22, temperature 98.5, pulse was 80. HEENT: Pupils are equal, round, and reactive. Oral mucosa is moist. NECK: No JVD. No thyromegaly. No lymphadenopathy. No carotid bruits. HEART: S1, S2. No S3 or S4. No clicks, no rubs, no murmurs. Rate is irregularly irregular. LUNGS: Very diminished with some wheezing and crackles in the bases. ABDOMEN: Soft. Bowel sounds positive. Nontender. Nondistended. EXTREMITIES: 1+ pitting edema of bilateral lower extremities. NEUROLOGICAL: No neuro deficits noted. DIAGNOSTIC STUDIES LABORATORY RESULTS: Includes BNP of 332. Troponin less than 0.05 and less than 0.05. TSH 0.49. Sodium 136, potassium 5.3, chloride 98, CO2 of 29, BUN 65, creatinine 1.6, glucose 218. White count 5.9, hemoglobin 10.6, hematocrit 34.3, platelets are 113. UA was positive for leukocytes and nitrites. Culture is pending. IMAGING STUDIES: Chest x-ray shows coarse parenchymal markings suggesting emphysema and fibrosis as well as prominent pulmonary vascular could represent CHF. IMPRESSION 1. Acute hypoxic respiratory failure. 2. Acute diastolic heart failure. 3. Chronic obstructive pulmonary disease. 4. Acute kidney injury on chronic kidney disease. 5. Urinary tract infection. Culture is pending. 6. Hyperkalemia. 7. Coronary artery disease, status post drug-eluting stent in 2016 to the first posterior LV branch with a bare-metal stent prior to that to the left anterior descending. 8. Hypertension. 9. Hyperlipidemia. 10. Diabetes. PLAN We will defer diuresis to Renal. We will check CT of the chest as the patient does complain of some sharp chest pain with deep inspiration to the left side of her chest. We will have the childcare center administrator to see the patient for rehab as well as intermediate placement. We will check troponin as well as coags in the morning. Further recommendations pending current workup and testing results. Dictated by... ALEJANDRO Whelan/sveta Unit #: [id number] #: [id number] Patient: IVETH SNOWDEN TD: 09/09/2016 07:12 JOB #: [id number] CONSULTATION REPORT Page 1 of 1 X X CONSULTATION REPORT
--- NOTE | ~2016-09-07 | CR72 ---
[facility] A Service of [facility] RADIOLOGY TEXT RESULTS PATIENT: IVETH SNOWDEN LOCATION: [facility] : 35 UNIT #: [id number] AGE: [address]: Tim Fontana MD SEX: F ORDER DR: [id number] [facility] [address] [facility] [place], [place] [address] [id number] I MR#: [id number] #: [id number] NAME: IVETH SNOWDEN : 1935 SEX: F STUDY DATE/TIME: 09/11/2016 10:15 UNIT: [address] ROOM: [address] [place] [address] DESCRIPTION: CR Chest Single View Portable Attending Physician: Tim Fontana M.D. Ordering Physician: Tim Fontana M.D. Primary Care Physician: Soham Dietz M.D. MEDICAL IMAGING REPORT This report is preliminary unless electronic signature is present EXAM Portable chest. HISTORY Shortness of breath with irregular heartbeat for the past 4 days. COMPARISON Single AP view of the chest was obtained and compared with 09/07/2016 FINDINGS Cardiomegaly and a tortuous calcified aorta are again seen. Interstitial markings are prominent throughout both lungs. This has not changed significantly. The right costophrenic angle is slightly more blunted, suggesting a developing right-sided pleural effusion. Pulmonary vascular markings are mildly prominent, but unchanged. IMPRESSION Probable developing right pleural effusion, new since the previous exam. Interstitial lung disease with pulmonary vascular congestion and cardiomegaly is unchanged. Dictated by... Soham Em M.D. THIS IS AN ELECTRONICALLY VERIFIED REPORT Soham Em M.D. at 09/14/2016 11:44 AM RONAN/[place] TD: 09/11/2016 16:03 JOB #: [id number] MEDICAL IMAGING REPORT [facility] A Service [facility] RADIOLOGY TEXT RESULTS PATIENT: IVETH SNOWDEN LOCATION: [facility] : 35 UNIT #: [id number] AGE: [address]: Tim Fontana MD SEX: F ORDER DR: Page 1 of 1 COPY
[~2016-09-07 11:03] MED LIST: ACETAMINOPHEN PO; ACETAMINOPHEN325 MG PO; ACETAMINOPHEN650 M3 PO; ADVAIR 250-501 EAC1 IH; ADVAIR 250-501 EACH IH; ADVAIR 250-501 EACH INH; ADVAIR 2501 DISK W/D PO; ALBUTEROL MININEB NEB; ALBUTEROL17 GM INH; ALBUTEROL2.5 MG/0.5 INH; ALDACTONE25 MG PO; ALPRAZOLAM PO; ALPRAZOLAM0.5 MG PO; AMLODIPINE BESYL5 MG PO; ANEXSIA 5/325 M1 TA1 PO; ANTIVERT PO; ASPIR-TRIN325 MG PO; ASPIRIN EC81 M1 PO; ASPIRIN ENTERI325 M1 PO; ASPIRIN PO; ASPIRIN325 M1 PO; ASPIRIN81 M2 PO; ATROVENT HFA12.9 GM INH; BUMETANIDE1 MG PO; BUMETANIDE2 M1 PO; BUMEX PO; BUMEX1 MG PO; BUMEX2 MG PO; CALCIUM + D 6001 TA1 PO; CALTRATE PLUS T1 TAB PO; CARBAMAZEPINE200 M1 PO; CARBATROL200 MG PO; CARDIZEM CD PO; CARDIZEM CD240 M1 PO; CARDIZEM CD240 M2 PO; CARDIZEM LA360 MG PO; CARDIZEM PO; CARTIA XT PO; CEFTIN PO; CLARITIN10 M3 PO; CLARITIN10 MG PO; CLOPIDOGREL BIS75 MG PO; CLOPIDOGREL75 MG PO; COLACE PO; CORDARONE200 M1 PO; COREG PO; CORRECTOL5 MG PO; COUMADIN PO; COUMADIN5 MG PO; COUMADIN7.5 MG PO; COZAAR PO; DIGOX0.125 MG PO; DIGOXIN125 MCG PO; DILTIAZEM 24HR240 M1 PO; DILTIAZEM 24HR240 M2 PO; DILTIAZEM 24HR360 M1 PO; ELIQUIS5 MG PO; FLONASE 0.05% N16 G1; FLONASE16 GM; FOLIC ACID1 MG PO; FUROSEMIDE10 MG/M1 IV; FUROSEMIDE40 MG PO; FUROSEMIDE80 MG PO; GLUCOPHAGE XR500 MG PO; GLUCOPHAGE500 M1 PO; GLUCOPHAGE500 MG PO; GLUCOTROL PO; GLUCOTROL XL PO; GLYCOLAX; HUMALOG MI100 UNIT/1; HUMALOG MI100 UNIT/2 SUBQ; HUMALOG MI100 UNIT/5 SQ; HUMALOG MIX 75/10 ML; HUMALOG MIX 75/10 ML SUBQ; HUMALOG MIX 75/23 M1 SQ; HUMALOG MIX 75/23 ML; HUMALOG MIX 75/23 ML SUBQ; HUMALOG100 U/ML SUBQ; HUMULIN 70100 UNITS/ SUBQ; HUMULIN N100 UNITS/ SQ; HUMULIN R100 U/ML SQ; HUMULIN R100 U/ML SUBQ; HYDRALAZINE HC100 MG PO; HYDRALAZINE HCL25 MG PO; HYDROCODONE-APA1 T56 PO; HYZAAR 100-25 T1 TAB PO; IBUPROFEN PO; IBUPROFEN400 MG PO; IMDUR-ER60 M2 PO; IMDUR-ER60 M3 PO; IMDUR-ER60 MG PO; JANUVIA50 MG PO; KCL PO; KEFLEX500 MG PO; LANOXIN PO; LASIX80 MG PO; LEVAQUIN PO; LEVAQUIN750 MG PO; LIPITOR PO; LISINOPRIL PO; LIVALO2 MG PO; LOPRESSOR PO; LORTAB 5/500 TA1 TA2 PO; LOVENOX100 MG/ML SUBQ; LOW DOSE ASPIRI81 M1 PO; MECLIZINE HCL25 M1 PO; MEDI-MECLIZINE25 M1 PO; METFORMIN HCL1000 M1 PO; METFORMIN HCL500 M1 PO; METFORMIN HCL500 M2 PO; METOPROLOL TAR25 MG PO; MICRO-K10 ME2 PO; MICRO-K10 MEQ PO; MILK OF MAGNESIA PO; MONTELUKAST SOD10 MG PO; MOTION RELIEF25 MG PO; MOTION SICKNESS25 M4 PO; MYRBETRIQ25 MG PO; NEURONTIN100 MG PO; NICOTINE LOZENGE PO; NITROGLYGERIN0.4 MG SL; NITROQUICK0.4 MG SL; NORVASC PO; NOVOLOG MI100 UNIT/1 SQ; NOVOLOG7030; NOVOLOG7030 SUBQ; OMEPRAZOLE20 M1 PO; OMEPRAZOLE20 M2 PO; OXYGEN; OXYGEN NS; PANTOPRAZOLE SO20 MG PO; PHENERGAN25 M1 PO; PLAVIX PO; POTASSIUM CHLO10 ME1 PO; POTASSIUM CHLO10 MEQ DOB; POTASSIUM CHLO10 MEQ PO; PRAVACHOL PO; PRED FORTE1 ML OP; PRED FORTE1 ML OS; PRED-G 1% EYE DR5 ML OP; PRED-G 1% EYE DR5 ML OS; PREDNISONE EYE DROP; PREDNISONE PO; PREDNISONE10 MG PO; PREDNISONE2.5 MG PO; PRILOSEC PO; PRILOSEC20 M1 PO; PRILOSEC20 MG DOB; PRILOSEC20 MG PO; PRINIVIL40 MG PO; PROAIR HFA8.5 GM IH; PROAIR RESPICL90 MCG INH; PROVENTIL INH0.5 ML HHN; PYRIDIUM PO; REFRESH15 ML OP; SINGULAIR PO; SPIRIVA18 MCG INH; TEGRETOL PO; TEGRETOL-XR200 MG PO; VITAMIN B12 PO; VITAMIN D PO; XANAX0.5 M1 PO; XANAX0.5 MG PO; ZAROXYLYN PO; ZESTRIL40 MG PO; ZETIA PO; ZOCOR PO; [UNRECOGNIZED DRUG - OTHER] PO
[2016-09-07 12:15] LABS: BASOPHIL% 0.6 % (0-2.5); EOSINOPHIL# 0.1 X10e3 (0-0.7); EOSINOPHIL% 1.6 % (0.0-7.0); HEMATOCRIT 35.7 % (35.0-45.0); HEMOGLOBIN 11.2 gm/dL (12.0-16.0); LYMPHOCYTE# 0.9 X10e3 (1.0-3.5); LYMPHOCYTE% 13.4 % (17.0-45.0); MEAN CELL VOLUME 89.3 FL (83-96); MEAN CORPUSCULAR HGB CONC 31.3 g/dL (30-36); MEAN PLATELET VOLUME 8.2 FL (6.5-11.5); MONOCYTE# 0.8 X10e3 (0-1.0); MONOCYTE% 11.4 % (3.0-12.0); PLATELET COUNT 158 X10e3 (140-420); RED BLOOD COUNT 3.99 X10e (3.90-5.30); RED CELL DISTRIBUTION WIDTH 19.4 % (11.0-15.5); WHITE BLOOD COUNT 6.8 X10e3 (4.0-10.5)
[2016-09-07 12:16] LABS: DIFF IND NO
[2016-09-07 12:39] LABS: POC - CKMB 1.8 ng/mL (0.0-7.9); POC - TROPONIN <0.05 ng/mL (<=0.05)
[2016-09-07 13:01] LABS: ALBUMIN SERUM 3.7 g/dL (3.5-5.0); BILIRUBIN, DIRECT 0.1 mg/dL (0.0-0.2); BILIRUBIN,INDIRECT 0.4 mg/dL (0.0-0.9); BILIRUBIN,TOTAL 0.5 mg/dL (0.2-2.0); BUN/CREATININE RATIO 34.21; CALCIUM SERUM 8.5 mg/dL (8.4-10.2); CREATININE SERUM 1.9 mg/dL (0.6-1.4); GLOM FILT RATE Estimated 24.5 mL/min (>60); PROTEIN TOTAL SERUM 7.5 g/dL (6.0-8.3)
[2016-09-07 13:04] LABS: POTASSIUM 5.7 mmol/L (3.5-5.1)
[2016-09-07 13:55] LABS: POC - CKMB 1.5 ng/mL (0.0-7.9); POC - TROPONIN <0.05 ng/mL (<=0.05)
[2016-09-07 15:10] LABS: URINE SOURCE CLEAN CATCH
[2016-09-07] MEDS ORDERED: ADVAIR 250-501 EACH INH (15:19)
[2016-09-07] MEDS ORDERED: ACETAMINOPHEN650 M4 PO (15:19)
[2016-09-07] MEDS ORDERED: ALBUTEROL17 GM INH (15:20)
[2016-09-07] MEDS ORDERED: ASPIRIN81 M2 PO (15:20)
[2016-09-07] MEDS ORDERED: ELIQUIS2.5 MG PO (15:20)
[2016-09-07] MEDS ORDERED: ALBUTEROL2.5 MG/3 M NEB (15:20)
[2016-09-07] MEDS ORDERED: FLONASE ALLERG9.9 ML (15:21)
[2016-09-07] MEDS ORDERED: NEURONTIN100 MG PO (15:21)
[2016-09-07] MEDS ORDERED: LANOXIN125 MCG PO (15:21)
[2016-09-07] MEDS ORDERED: LASIX80 MG PO (15:21)
[2016-09-07] MEDS ORDERED: EQUETRO200 MG PO (15:21)
[2016-09-07] MEDS ORDERED: LOVENOX80 MG/0.8 INJ (15:21)
[2016-09-07] MEDS ORDERED: HUMULIN R100 UNIT/1 SUBQ (15:22)
[2016-09-07] MEDS ORDERED: HUMULIN 70100 UNITS/ SUBQ (15:22)
[2016-09-07] MEDS ORDERED: ISOSORBIDE MON120 M1 PO (15:23)
[2016-09-07 15:24] LABS: URINE APPEARANCE CLEAR; URINE BILIRUBIN NEG (NEG); URINE BLOOD NEG (NEG); URINE COLOR YELLOW; URINE GLUCOSE NEG (NEG); URINE KETONE NEG (NEG); URINE LEUKOCYTE ESTERASE 2+ (NEG); URINE NITRATE POS (NEG); URINE PH 5.5 (5-8); URINE PROTEIN NEG (NEG); URINE SPECIFIC GRAVITY 1.011 (1.003-1.035); URINE UROBILINOGEN 0.2 MG/DL (NEG)
[2016-09-07] MEDS ORDERED: LOPRESSOR PO (15:25)
[2016-09-07] MEDS ORDERED: LISINOPRIL PO (15:25)
[2016-09-07] MEDS ORDERED: NITROGLYGERIN0.4 MG PO (15:25)
[2016-09-07] MEDS ORDERED: METFORMIN PO (15:25)
[2016-09-07] MEDS ORDERED: NYSTATIN100000 UN1 PO (15:26)
[2016-09-07] MEDS ORDERED: PROTONIX PO (15:26)
[2016-09-07] MEDS ORDERED: KCL PO (15:26)
[2016-09-07] MEDS ORDERED: PRED MILD5 ML OS (15:27)
[2016-09-07] MEDS ORDERED: COUMADIN PO (15:27)
[2016-09-07] MEDS ORDERED: REQUIP1 MG PO (15:27)
[2016-09-07 15:29] LABS: CULTURE INDICATED? YES; URBCS1 AUWI 0-2 /[HPF] (0-2); URINE BACTERIA AUWI 2+ (NEGATIVE); URINE SQUAMOUS EPITHELIAL CELL NONE SEEN /[HPF]
[2016-09-07 19:06] LABS: ARTERIAL BLD GAS O2 SATURATION 94.6 % (90.0-100.0); ARTERIAL BLOOD GAS CARBOXY HB 1.5 %sat (0.0-9.0); ARTERIAL BLOOD GAS HCO3 31.4 mmol/L; ARTERIAL BLOOD GAS MET HB 1.3 %sat (0.0-2.0); ARTERIAL BLOOD GAS PO2 87.7 mmHg (80.0-100); ARTERIAL BLOOD GAS pH 7.371 (7.350-7.450)
[2016-09-07 19:08] LABS: ARTERIAL BLOOD GAS ALLEN TEST NORMAL; ARTERIAL BLOOD GAS ART SITE LEFT RADIAL; ARTERIAL BLOOD GAS DELIVERY NASAL CANNULA; ARTERIAL BLOOD GAS PCO2 54.2 mmHg (35.0-45.0); ARTERIAL DRAW? YES
[2016-09-07 23:04] LABS: INR 2.7
[2016-09-07 23:05] LABS: PROTHROMBIN TIME (PATIENT) 29.3 SECONDS (10.0-11.7)
[2016-09-08 05:16] LABS: HEMATOCRIT 34.3 % (35.0-45.0); HEMOGLOBIN 10.6 gm/dL (12.0-16.0); MEAN CELL VOLUME 89.3 FL (83-96); MEAN CORPUSCULAR HEMOGLOBIN 27.7 PG (28-34); MEAN PLATELET VOLUME 8.3 FL (6.5-11.5); RED BLOOD COUNT 3.84 X10e (3.90-5.30); RED CELL DISTRIBUTION WIDTH 18.8 % (11.0-15.5); WHITE BLOOD COUNT 5.9 X10e3 (4.0-10.5)
[2016-09-08 05:43] LABS: INR 2.6; PROTHROMBIN TIME (PATIENT) 28.8 SECONDS (10.0-11.7)
[2016-09-08 06:00] LABS: BUN/CREATININE RATIO 40.62; CALCIUM SERUM 8.3 mg/dL (8.4-10.2); CREATININE SERUM 1.6 mg/dL (0.6-1.4); GLOM FILT RATE Estimated 30.1 mL/min (>60); POTASSIUM 5.3 mmol/L (3.5-5.1)
[2016-09-08 21:27] LABS: URINE APPEARANCE CLEAR; URINE BILIRUBIN NEG (NEG); URINE BLOOD NEG (NEG); URINE COLOR YELLOW; URINE GLUCOSE NEG (NEG); URINE KETONE NEG (NEG); URINE LEUKOCYTE ESTERASE NEG (NEG); URINE NITRATE NEG (NEG); URINE PROTEIN NEG (NEG); URINE SPECIFIC GRAVITY 1.012 (1.003-1.035); URINE UROBILINOGEN 0.2 MG/DL (NEG)
[2016-09-09 05:28] LABS: INR 2.8; PROTHROMBIN TIME (PATIENT) 30.6 SECONDS (10.0-11.7)
[2016-09-09 05:35] LABS: HEMATOCRIT 34.6 % (35.0-45.0); HEMOGLOBIN 10.7 gm/dL (12.0-16.0); MEAN CELL VOLUME 88.4 FL (83-96); MEAN CORPUSCULAR HEMOGLOBIN 27.4 PG (28-34); MEAN PLATELET VOLUME 8.9 FL (6.5-11.5); RED BLOOD COUNT 3.91 X10e (3.90-5.30); RED CELL DISTRIBUTION WIDTH 18.7 % (11.0-15.5); WHITE BLOOD COUNT 7.3 X10e3 (4.0-10.5)
[2016-09-09 05:55] LABS: BUN/CREATININE RATIO 48.75; CALCIUM SERUM 8.5 mg/dL (8.4-10.2); CREATININE SERUM 1.6 mg/dL (0.6-1.4); GLOM FILT RATE Estimated 30.1 mL/min (>60); MAGNESIUM 2.3 mg/dL (1.6-3.0); PHOSPHOROUS 5.1 mg/dL (2.5-4.6); POTASSIUM 4.7 mmol/L (3.5-5.1)
[2016-09-09 05:58] LABS: URIC ACID 12.4 mg/dL (2.6-7.2)
[2016-09-09 10:08] LABS: FREE T3 2.3 pg/mL (2.5-3.9)
[2016-09-09 10:10] LABS: FREE THYROXIN (T4) 0.85 ng/dL (0.58-1.64)
[2016-09-10 05:16] LABS: HEMATOCRIT 35.1 % (35.0-45.0); HEMOGLOBIN 10.6 gm/dL (12.0-16.0); MEAN CELL VOLUME 89.1 FL (83-96); MEAN CORPUSCULAR HEMOGLOBIN 26.8 PG (28-34); MEAN CORPUSCULAR HGB CONC 30.1 g/dL (30-36); MEAN PLATELET VOLUME 8.7 FL (6.5-11.5); RED BLOOD COUNT 3.95 X10e (3.90-5.30); RED CELL DISTRIBUTION WIDTH 18.9 % (11.0-15.5); WHITE BLOOD COUNT 6.6 X10e3 (4.0-10.5)
[2016-09-10 05:28] LABS: INR 2.3; PROTHROMBIN TIME (PATIENT) 24.8 SECONDS (10.0-11.7)
[2016-09-10 06:15] LABS: BUN/CREATININE RATIO 51.25; CALCIUM SERUM 8.6 mg/dL (8.4-10.2); CREATININE SERUM 1.6 mg/dL (0.6-1.4); GLOM FILT RATE Estimated 30.1 mL/min (>60); POTASSIUM 4.5 mmol/L (3.5-5.1)
[2016-09-10 06:20] LABS: URIC ACID 13.6 mg/dL (2.6-7.2)
[2016-09-10 14:50] LABS: CREATININE,RANDOM URINE 22 mg/dL; POTASSIUM,URINE RANDOM 16 mmol/L; SODIUM URINE RANDOM 91 mmol/L; TOTAL PROTEIN,RANDOM URINE <10 mg/dl (<10)
[2016-09-11 05:36] LABS: HEMATOCRIT 36.3 % (35.0-45.0); HEMOGLOBIN 11.3 gm/dL (12.0-16.0); MEAN CORPUSCULAR HEMOGLOBIN 27.6 PG (28-34); MEAN CORPUSCULAR HGB CONC 31.1 g/dL (30-36); MEAN PLATELET VOLUME 8.2 FL (6.5-11.5); RED BLOOD COUNT 4.08 X10e (3.90-5.30); RED CELL DISTRIBUTION WIDTH 18.7 % (11.0-15.5); WHITE BLOOD COUNT 5.9 X10e3 (4.0-10.5)
[2016-09-11 06:20] LABS: BUN/CREATININE RATIO 57.69; CALCIUM SERUM 8.8 mg/dL (8.4-10.2); CREATININE SERUM 1.3 mg/dL (0.6-1.4); GLOM FILT RATE Estimated 38.7 mL/min (>60); MAGNESIUM 2.1 mg/dL (1.6-3.0)
[2016-09-11 08:36] LABS: INR 2.3; PROTHROMBIN TIME (PATIENT) 25.2 SECONDS (10.0-11.7)
[2016-09-11 13:57] LABS: URINE APPEARANCE CLEAR; URINE BILIRUBIN NEG (NEG); URINE BLOOD NEG (NEG); URINE COLOR YELLOW; URINE GLUCOSE NEG (NEG); URINE KETONE NEG (NEG); URINE LEUKOCYTE ESTERASE NEG (NEG); URINE NITRATE NEG (NEG); URINE PROTEIN NEG (NEG); URINE SPECIFIC GRAVITY 1.011 (1.003-1.035); URINE UROBILINOGEN 0.2 MG/DL (NEG)
[2016-09-11 13:59] LABS: CULTURE INDICATED? NO
[2016-09-12 05:59] LABS: BASOPHIL% 0.6 % (0-2.5); EOSINOPHIL# 0.1 X10e3 (0-0.7); EOSINOPHIL% 2.1 % (0.0-7.0); HEMOGLOBIN 10.6 gm/dL (12.0-16.0); LYMPHOCYTE# 0.6 X10e3 (1.0-3.5); MEAN CELL VOLUME 88.6 FL (83-96); MEAN CORPUSCULAR HEMOGLOBIN 27.7 PG (28-34); MEAN CORPUSCULAR HGB CONC 31.3 g/dL (30-36); MEAN PLATELET VOLUME 8.2 FL (6.5-11.5); MONOCYTE# 0.6 X10e3 (0-1.0); MONOCYTE% 10.8 % (3.0-12.0); NEUTROPHIL% 74.5 % (40-75); PLATELET COUNT 112 X10e3 (140-420); RED BLOOD COUNT 3.84 X10e (3.90-5.30); RED CELL DISTRIBUTION WIDTH 18.5 % (11.0-15.5); WHITE BLOOD COUNT 5.4 X10e3 (4.0-10.5)
[2016-09-12 06:18] LABS: INR 2.4; PROTHROMBIN TIME (PATIENT) 25.8 SECONDS (10.0-11.7)
[2016-09-12 06:29] LABS: DIFF IND NO
[2016-09-12 06:43] LABS: BUN/CREATININE RATIO 45.62; CALCIUM SERUM 8.6 mg/dL (8.4-10.2); CREATININE SERUM 1.6 mg/dL (0.6-1.4); GLOM FILT RATE Estimated 30.1 mL/min (>60); POTASSIUM 3.8 mmol/L (3.5-5.1)
[2016-09-12 13:06] LABS: URINE APPEARANCE CLEAR; URINE BILIRUBIN NEG (NEG); URINE BLOOD NEG (NEG); URINE COLOR YELLOW; URINE GLUCOSE NEG (NEG); URINE KETONE NEG (NEG); URINE LEUKOCYTE ESTERASE NEG (NEG); URINE NITRATE NEG (NEG); URINE PROTEIN NEG (NEG); URINE SPECIFIC GRAVITY 1.012 (1.003-1.035); URINE UROBILINOGEN 0.2 MG/DL (NEG)
[2016-09-13 06:31] LABS: HEMATOCRIT 35.7 % (35.0-45.0); INR 2.5; MEAN CELL VOLUME 88.4 FL (83-96); MEAN CORPUSCULAR HEMOGLOBIN 27.3 PG (28-34); MEAN CORPUSCULAR HGB CONC 30.8 g/dL (30-36); MEAN PLATELET VOLUME 8.8 FL (6.5-11.5); PROTHROMBIN TIME (PATIENT) 27.1 SECONDS (10.0-11.7); RED BLOOD COUNT 4.04 X10e (3.90-5.30); RED CELL DISTRIBUTION WIDTH 18.7 % (11.0-15.5); WHITE BLOOD COUNT 6.4 X10e3 (4.0-10.5)
[2016-09-13 07:48] LABS: BUN/CREATININE RATIO 57.14; CALCIUM SERUM 8.9 mg/dL (8.4-10.2); CREATININE SERUM 1.4 mg/dL (0.6-1.4); GLOM FILT RATE Estimated 35.4 mL/min (>60); MAGNESIUM 2.4 mg/dL (1.6-3.0); POTASSIUM 3.5 mmol/L (3.5-5.1)
[2016-09-13 08:40] LABS: ARTERIAL BLD GAS O2 SATURATION 93.7 % (90.0-100.0); ARTERIAL BLOOD GAS ART SITE RIGHT RADIAL; ARTERIAL BLOOD GAS CARBOXY HB 1.5 %sat (0.0-9.0); ARTERIAL BLOOD GAS DELIVERY NASAL CANNULA; ARTERIAL BLOOD GAS HCO3 36.1 mmol/L; ARTERIAL BLOOD GAS MET HB 0.6 %sat (0.0-2.0); ARTERIAL BLOOD GAS PCO2 59.1 mmHg (35.0-45.0); ARTERIAL BLOOD GAS PO2 77.2 mmHg (80.0-100); ARTERIAL BLOOD GAS pH 7.394 (7.350-7.450); ARTERIAL DRAW? YES
[2016-09-14 06:05] LABS: HEMATOCRIT 35.3 % (35.0-45.0); HEMOGLOBIN 10.9 gm/dL (12.0-16.0); MEAN CELL VOLUME 87.6 FL (83-96); MEAN CORPUSCULAR HEMOGLOBIN 27.1 PG (28-34); MEAN PLATELET VOLUME 8.7 FL (6.5-11.5); RED BLOOD COUNT 4.03 X10e (3.90-5.30); RED CELL DISTRIBUTION WIDTH 18.6 % (11.0-15.5); WHITE BLOOD COUNT 7.3 X10e3 (4.0-10.5)
[2016-09-14 06:15] LABS: INR 2.1; PROTHROMBIN TIME (PATIENT) 23.2 SECONDS (10.0-11.7)
[2016-09-14 06:48] LABS: BUN/CREATININE RATIO 51.25; CREATININE SERUM 1.6 mg/dL (0.6-1.4); GLOM FILT RATE Estimated 30.1 mL/min (>60); MAGNESIUM 2.4 mg/dL (1.6-3.0); PHOSPHOROUS 3.3 mg/dL (2.5-4.6); POTASSIUM 3.7 mmol/L (3.5-5.1)
[2016-09-15 05:26] LABS: HEMATOCRIT 34.2 % (35.0-45.0); HEMOGLOBIN 10.6 gm/dL (12.0-16.0); MEAN CELL VOLUME 87.9 FL (83-96); MEAN CORPUSCULAR HEMOGLOBIN 27.2 PG (28-34); RED BLOOD COUNT 3.89 X10e (3.90-5.30); RED CELL DISTRIBUTION WIDTH 18.7 % (11.0-15.5)
[2016-09-15 05:33] LABS: INR 2.8; PROTHROMBIN TIME (PATIENT) 30.1 SECONDS (10.0-11.7)
[2016-09-15 06:12] LABS: BUN/CREATININE RATIO 46.47; CALCIUM SERUM 8.6 mg/dL (8.4-10.2); CREATININE SERUM 1.7 mg/dL (0.6-1.4); POTASSIUM 3.9 mmol/L (3.5-5.1)
== END 2016-09-16 16:43 | DRG 291 ==
LOC: CED 11:03 → C3A PCU 15:30 → CEDOF 15:30 → CED 16:09 → CEDOF 16:09 → C3A PCU 19:42 → CEDOF 19:42 → C3A PCU 09-16 16:43
PROVIDERS: Emergency Medicine; Internal Medicine; Internal Medicine Cardiovascular Disease
PROC: B24BYZZ Ultrasonography of Heart with Aorta using Other Contrast (ICD-10-PCS; principal; 2016-09-08)
DX: I13.0 Hypertensive heart and chronic kidney disease with heart failure and stage 1 through stage 4 chronic kidney disease, or unspecified chronic kidney disease (principal); I50.33 Acute on chronic diastolic (congestive) heart failure; J96.21 Acute and chronic respiratory failure with hypoxia; G93.41 Metabolic encephalopathy; N17.9 Acute kidney failure, unspecified; E87.3 Alkalosis; E11.22 Type 2 diabetes mellitus with diabetic chronic kidney disease; D69.6 Thrombocytopenia, unspecified; N18.3 Chronic kidney disease, stage 3 (moderate); I27.2 Other secondary pulmonary hypertension; N39.0 Urinary tract infection, site not specified; J44.9 Chronic obstructive pulmonary disease, unspecified; G47.33 Obstructive sleep apnea (adult) (pediatric); I48.2 Chronic atrial fibrillation; E87.5 Hyperkalemia; E78.5 Hyperlipidemia, unspecified; Z86.73 Personal history of transient ischemic attack (TIA), and cerebral infarction without residual deficits; Z85.3 Personal history of malignant neoplasm of breast; Z79.82 Long term (current) use of aspirin; I07.1 Rheumatic tricuspid insufficiency; R27.8 Other lack of coordination; Z90.49 Acquired absence of other specified parts of digestive tract; B96.20 Unspecified Escherichia coli [E. coli] as the cause of diseases classified elsewhere
CPT/HCPCS: 36415; 36600; 70450; 71010; 71250; 80048; 80076; 80156; 80162; 81003; 82140; 82436; 82553; 82570; 82607; 82803; 82947; 83735; 83880; 84100; 84133; 84156; 84300; 84439; 84443; 84481; 84484; 84550; 85025; 85027; 85610; 87086; 87088; 87186; 89190; 93005; 93306; 94640; 94760; 96361; 96374; 96375; 97110; 97116; 97162; 97166; 97530; 97535; 99285; G8978-GP; G8979-GP; G8980-GP; G8987-GO; G8988-GO; J0692; J0696; J1815; J1940; J2916; J2920; J2930